=== PATIENT | male | born 1950 | race Caucasian/White ===

== ENCOUNTER 2018-10-29 20:08 | Emergency (ER) | payer MEDICARE, OTHER ==
[~2018-10-29] VITALS: Ht 175.3 cm; Wt 113.4 kg
[2018-10-29 20:27] LABS: BASOPHILS % (AUTO) 0 % (0-10); EOSINOPHILS # (AUTO) 0.2 10^3/uL (0.0-0.3); EOSINOPHILS % (AUTO) 2 % (0-10); HEMATOCRIT 41 % (40-54); HEMOGLOBIN 13.5 G/DL (13.3-17.7); LYMPHOCYTES # (AUTO) 2.2 X 10^3 (1.0-4.0); LYMPHOCYTES % (AUTO) 24 % (12-44); MEAN CORPUSCULAR HEMOGLOBIN 30 PG (25-34); MEAN CORPUSCULAR HGB CONC 33 G/DL (32-36); MEAN CORPUSCULAR VOLUME 90 FL (80-99); MEAN PLATELET VOLUME 10.2 FL (7.4-10.4); MONOCYTES # (AUTO) 1.1 X 10^3 (0.0-1.0); MONOCYTES % (AUTO) 12 % (0-12); NEUTROPHILS # (AUTO) 5.7 X 10^3 (1.8-7.8); NEUTROPHILS % (AUTO) 62 % (42-75); PLATELET COUNT 280 10^3/uL (130-400); WHITE BLOOD COUNT 9.2 10^3/uL (4.3-11.0)
--- NOTE | 2018-10-29 20:28 | ED General ---
General Stated Complaint: DIZZY,NAUSEA Source of Information: Patient, EMS History of Present Illness Date Seen by Provider: Oct 29, 2018 Time Seen by Provider: 20:09 Initial Comments PT ARRIVES VIA EMS PT WAS AT A LOCAL [employer], AND BECAME LIGHTHEADED/DIZZY, BECAME DIAPHORETIC AND BYSTANDERS ASSISTED HIM TO THE FLOOR. HAD NEAR-SYNCOPAL EPISODE PT WAS DIZZY ON ATTEMPTS TO STAND PT HAS HAD NAUSEA, NO VOMITING PT IS UNABLE TO RECALL EVENT--ALL OF THE ABOVE INFORMATION IS FROM EMS EMS REPORT THAT PT WAS VERY DIAPHORETIC AT THE SCENE. PT DENIES HEADACHE NO CHEST PAIN NO PALPITATIONS NO SHORTNESS OF BREATH NO ABDOMINAL PAIN NO VISION CHANGES NO PAIN ANYWHERE NO RECENT ILLNESS OR FEVER, ETC . PT STATES HE HAS NOT HAD ANYTHING TO EAT OR DRINK TODAY--STATES HE WORKS [employer] AT [employer], AND SLEEPS DURING THE DAY. DOES NOT WORK [employer] AND DID NOT WORK LAST NIGHT. OF NOTE, PT STATES HE HAS NOT HAD ANY HEAT IN HIS HOME SINCE 10/14/18 PT STATES HE HAS NOT TAKEN ANY OF HIS MEDICATIONS TODAY ACCUCHECK 120 BY EMS--PT STATES HE IS "BORDERLINE" DIABETIC, DOES NOT TAKE MEDICATIONS FOR DIABETES EMS REPORT THAT INITIALLY THEY COULD NOT OBTAIN A MANUAL BP, BUT ONCE ON MONITOR , BP WAS 88/56, O2 SAT 91% PT DOES HAVE HISTORY OF CVA 2 YEARS AGO, BUT PT IS NOT SURE WHAT SYMPTOMS HE HAD --THINKS HE WAS HAVING TROUBLE TALKING. WAS AT [facility] [place] AT THE TIME. PCP: BEVERLEY ALY IN [place] Allergies and Home Medications Allergies Coded Allergies: No Known Drug Allergies (Unverified , 10/29/18) Patient Home Medication List Home Medication List Reviewed: Yes Review of Systems Review of Systems Constitutional: see HPI, diaphoresis, dizziness EENTM: no symptoms reported Respiratory: no symptoms reported; No cough, No orthopnea, No short of breath, No wheezing Cardiovascular: see HPI; No chest pain, No palpitations; syncope (NEAR-SYNCOPE) ; No vascular heart diseas Gastrointestinal: see HPI; No diarrhea; nausea; No vomiting Genitourinary: no symptoms reported Musculoskeletal: no symptoms reported Skin: no symptoms reported Psychiatric/Neurological: See HPI; Denies Headache, Denies Numbness, Denies Paresthesia, Denies Seizure, Denies Tingling, Denies Weakness Past Fivhzsl-Pslwdn-Gkngja Hx Patient Social History Alcohol Use: Occasionally Uses Recreational Drug Use: No Smoking Status: Former Smoker Recent Foreign Travel: No Contact w/Someone Who Travel: No Past Medical History Surgeries: Yes (RIGHT ELBOW AND FEMUR SURGERIES; EGD/COLONOSCOPY) Orthopedic, Tonsillectomy Respiratory: No Cardiac: No Neurological: Yes (CVA 2016- AFFECTED SPEECH ) Stroke Genitourinary: No Gastrointestinal: Yes Gastroesophageal Reflux, Hiatal Hernia Musculoskeletal: Yes (RIGHT ELBOW AND FEMUR SURGERIES) Endocrine: No HEENT: No Cancer: No Psychosocial: No Integumentary: No Blood Disorders: No Physical Exam Vital Signs Vital Signs - First Documented 10/29/18 10/30/18 20:10 01:35 Temp 97.7 Pulse 71 Resp 18 B/P (MAP) 107/72 (84) Pulse Ox 98 Capillary Refill : Height, Weight, BMI Height: '" Weight: lbs. oz. kg; BMI Method: General Appearance: No Apparent Distress, WD/WN, Other (UNKEMPT) HEENT: PERRL/EOMI, Normal ENT Inspection Neck: Full Range of Motion, Normal Inspection, Non Tender, Supple Respiratory: Normal Breath Sounds, No Accessory Muscle Use, No Respiratory Distress Cardiovascular: Regular Rate, Rhythm, No Edema, No JVD, No Murmur, Normal Peripheral Pulses Gastrointestinal: Normal Bowel Sounds, No Organomegaly, No Pulsatile Mass, Non Tender, Soft Extremity: Normal Capillary Refill, Normal Inspection, Normal Range of Motion, Non Tender, No Calf Tenderness, No Pedal Edema Neurologic/Psychiatric: Alert, Oriented x3 (BUT LIMITED RECOLLECTION OF EVENTS OF TONIGHT. PT HAS SOMEWHAT LIMITED MEMORY OVERALL. ), No Motor/Sensory Deficits , Normal Mood/Affect, bus matron II-XII Norm as Tested Skin: Normal Color, Damp, Diaphoresis Progress/Results/Core Measures Suspected Sepsis SIRS Temperature: Pulse: Respiratory Rate: Laboratory Tests 10/29/18 20:17: White Blood Count 9.2 10/29/18 23:53: White Blood Count 8.5 Blood Pressure / Mean: Laboratory Tests 10/29/18 20:17: Creatinine 1.49H, INR Comment 1.0, Platelet Count 280, Total Bilirubin 0.7 10/29/18 23:53: Creatinine 1.19, Platelet Count 275 Results/Orders Lab Results Laboratory Tests Test 10/29/18 20:17 10/29/18 20:44 10/29/18 22:35 10/29/18 23:53 Range/Units White Blood Count 9.2 8.5 4.3-11.0 10^3/uL Red Blood Count 4.50 4.88 4.35-5.85 10^6/uL Hemoglobin 13.5 14.5 13.3-17.7 G/DL Hematocrit 41 44 40-54 % Mean Corpuscular Volume 90 91 80-99 FL Mean Corpuscular Hemoglobin 30 30 25-34 PG Mean Corpuscular Hemoglobin Concent 33 33 32-36 G/DL Red Cell Distribution Width 13.0 13.2 10.0-14.5 % Platelet Count 280 275 130-400 10^3/uL Mean Platelet Volume 10.2 10.3 7.4-10.4 FL Neutrophils (%) (Auto) 62 79 H 42-75 % Lymphocytes (%) (Auto) 24 14 12-44 % Monocytes (%) (Auto) 12 7 0-12 % Eosinophils (%) (Auto) 2 1 0-10 % Basophils (%) (Auto) 0 0 0-10 % Neutrophils # (Auto) 5.7 6.7 1.8-7.8 X 10^3 Lymphocytes # (Auto) 2.2 1.2 1.0-4.0 X 10^3 Monocytes # (Auto) 1.1 H 0.6 0.0-1.0 X 10^3 Eosinophils # (Auto) 0.2 0.1 0.0-0.3 10^3/uL Basophils # (Auto) 0.0 0.0 0.0-0.1 10^3/uL Prothrombin Time 13.4 12.2-14.7 SEC INR Comment 1.0 0.8-1.4 Activated Partial Thromboplast Time 24 24-35 SEC Sodium Level 144 143 135-145 MMOL/L Potassium Level 3.6 4.4 3.6-5.0 MMOL/L Chloride Level 110 H 106 98-107 MMOL/L Carbon Dioxide Level 22 23 21-32 MMOL/L Anion Gap 12 14 5-14 MMOL/L Blood Urea Nitrogen 22 H 21 H 7-18 MG/DL Creatinine 1.49 H 1.19 0.60-1.30 MG/DL Estimat Glomerular Filtration Rate 47 > 60 BUN/Creatinine Ratio 15 18 Glucose Level 115 H 101 70-105 MG/DL Calcium Level 8.7 9.2 8.5-10.1 MG/DL Corrected Calcium 8.9 8.5-10.1 MG/DL Magnesium Level 2.0 1.8-2.4 MG/DL Total Bilirubin 0.7 0.1-1.0 MG/DL Aspartate Amino Transf (AST/SGOT) 24 5-34 U/L Alanine Aminotransferase (ALT/SGPT) 20 0-55 U/L Alkaline Phosphatase 55 40-136 U/L Total Creatine Kinase 154 30-200 U/L Creatine Kinase MB 5.8 <6.6 NG/ML Troponin I < 0.028 < 0.028 <0.028 NG/ML B-Type Natriuretic Peptide 54.8 <100.0 PG/ML Total Protein 6.2 L 6.4-8.2 GM/DL Albumin 3.7 3.2-4.5 GM/DL TSH [facility] Testing 2.74 0.35-4.94 UIU/ML Serum Alcohol < 10 <10 MG/DL Glucometer 111 H 70-110 MG/DL Urine Color YELLOW Urine Clarity CLEAR Urine pH 5 5-9 Urine Specific [place] 1.010 L 1.016-1.022 Urine Protein 1+ H NEGATIVE Urine Glucose (UA) NEGATIVE NEGATIVE Urine Ketones NEGATIVE NEGATIVE Urine Nitrite NEGATIVE NEGATIVE Urine Bilirubin NEGATIVE NEGATIVE Urine Urobilinogen NORMAL NORMAL MG/DL Urine Leukocyte Esterase NEGATIVE NEGATIVE Urine RBC (Auto) NEGATIVE NEGATIVE Urine RBC RARE /HPF Urine WBC RARE /HPF Urine Squamous Epithelial Cells 0-2 /HPF Urine Crystals NONE /LPF Urine Bacteria NEGATIVE /HPF Urine Casts NONE /LPF Urine Mucus NEGATIVE /LPF Urine Culture Indicated NO Urine Opiates Screen NEGATIVE NEGATIVE Urine Oxycodone Screen NEGATIVE NEGATIVE Urine Methadone Screen NEGATIVE NEGATIVE Urine Propoxyphene Screen NEGATIVE NEGATIVE Urine Barbiturates Screen NEGATIVE NEGATIVE Ur Tricyclic Antidepressants Screen NEGATIVE NEGATIVE Urine Phencyclidine Screen NEGATIVE NEGATIVE Urine Amphetamines Screen NEGATIVE NEGATIVE Urine Methamphetamines Screen NEGATIVE NEGATIVE Urine Benzodiazepines Screen NEGATIVE NEGATIVE Urine Cocaine Screen NEGATIVE NEGATIVE Urine Cannabinoids Screen NEGATIVE NEGATIVE Micro Results Microbiology 10/29/18 Influenza Types A,B Antigen (PAOLO) - Final, Complete My Orders Orders - SOFYA ODOM DO Accucheck Stat ONCE (10/29/18 20:17) Saline Lock/Iv-Start (10/29/18 20:17) Ekg Tracing (10/29/18:) O2 (10/29/18 20:17) Monitor-Rhythm Ecg Trace Only (10/29/18:) Ct Head Wo-R/O Stroke (10/29/18 20:) Alcohol (10/29/18 20:) BNP (10/29/18:) Cbc With Automated Diff (10/29/18:) Comprehensive Metabolic Panel (10/29/18:) Creatine Kinase (10/29/18:) Creatine Kinase Mb (10/29/18:) Drug Screen Stat (Urine) (10/29/18:) Magnesium (10/29/18:) Protime With Inr (10/29/18:) Partial Thromboplastin Time (10/29/18:) Thyroid Analyzer (10/29/18:) Troponin I (10/29/18:) Ua Culture If Indicated (10/29/18:) Blood Culture (10/29/18:) Influenza A And B Antigens (10/29/18:) Chest 1 View, Ap/Pa Only (10/29/18:17) Saline Lock/Iv-Start (10/29/18 21:00) Lactated Ringers (Lr 1000 Ml Iv Solution (10/29/18 21:00) Ct Angio Chest W (10/29/18 21:00) Ct Angio Head/Neck (10/29/18 21:00) Iohexol Injection (Omnipaque 350 Mg/Ml 1 (10/29/18 21:15) Received Contrast (Contrast Received) (10/29/18 21:15) Ns (Ivpb) (Sodium Chloride 0.9% Ivpb Bag (10/29/18 21:15) Iohexol Injection (Omnipaque 350 Mg/Ml 1 (10/29/18 21:15) Received Contrast (Contrast Received) (10/29/18 21:15) Ns (Ivpb) (Sodium Chloride 0.9% Ivpb Bag (10/29/18 21:15) Saline Lock/Iv-Start (10/29/18 21:45) Lactated Ringers (Lr 1000 Ml Iv Solution (10/29/18 21:45) Basic Metabolic Panel (10/29/18 23:14) Cbc With Automated Diff (10/29/18 23:14) Troponin I (10/29/18 23:14) Ekg Tracing (10/30/18 00:50) Medications Given in ED Current Medications Medications Dose Ordered Sig/Xochitl Route Start Time Stop Time Status Last Admin Dose Admin Iohexol 75 ml ONCE ONCE IV 10/29/18 21:15 10/29/18 21:44 DC 10/29/18 21:25 75 ML Iohexol 100 ml ONCE ONCE IV 10/29/18 21:15 10/29/18 21:44 DC 10/29/18 21:26 100 ML Lactated Ringer's 1,000 ml @ 0 mls/hr Q0M ONCE IV 10/29/18 21:00 10/29/18 21:01 DC 10/29/18 21:05 999 MLS/HR Lactated Ringer's 1,000 ml @ 0 mls/hr Q0M ONCE IV 10/29/18 21:45 10/29/18 21:47 DC 10/29/18 22:09 999 MLS/HR Sodium Chloride 100 ml ONCE ONCE IV 10/29/18 21:15 10/29/18 21:44 DC 10/29/18 21:25 50 ML Sodium Chloride 100 ml ONCE ONCE IV 10/29/18 21:15 10/29/18 21:44 DC 10/29/18 21:26 50 ML Vital Signs/I&O 10/29/18 10/30/18 20:10 01:35 Temp 97.7 97.7 Pulse 71 69 Resp 18 18 B/P (MAP) 107/72 (84) 120/72 (88) Pulse Ox 98 10/30/18 00:00 Intake Total 2900 ml Balance 2900 ml Capillary Refill : Progress Note : Progress Note NO SYMPTOMS DURING ER STAY VITALS REMAINED [facility], AND PT IS NOT AGREEABLE TO BEING TRANSFERRED WILL HOLD PT IN ER, HYDRATE AND REPEAT EKG AND LABS PT WANTING TO EAT AND DRINK--GIVEN WATER, NO PROBLEMS SWALLOWING PT OBSERVED IN ER FOR > 5 HOURS AND HAD NO SYMPTOMS OF ANY KIND. REPEAT EKG AND TROPONIN WERE NORMAL PT AMBULATED OUT OF ER WITHOUT DIFFICULTY ECG Initial ECG Impression Date: Oct 29, 2018 Initial ECG Impression Time: 20:18 Initial ECG Rate: 67 Initial ECG Rhythm: Normal Sinus EKG : EKG Time: 00:54 Rate: 73 Rhythm: Normal Sinus Diagnostic Imaging Comments CT HEAD--NO ACUTE PROCESS, CHRONIC CHANGES--PER RADIOLOGIST REPORT @ 2100 CT CHEST ANGIOGRAM--NO P.E. OR ACUTE PROCESS, PER RADIOLOGIST REPORT @ 2219 CT ANGIOGRAM OF HEAD AND NECK--NO ACUTE PROCESS, ASVD WITHOUT SIGNIFICANT STENOSIS, NO ANEURYSM OR INFARCT. PER RADIOLOGIST REPORT AT 2306 Reviewed: Reviewed by Me Departure Impression Primary Impression: Near syncope Additional Impression: Dehydration Disposition: 01 HOME, SELF-CARE Condition: Improved Departure-Patient Inst. Referrals: NO,LOCAL PHYSICIAN (PCP) Primary Care Physician Patient Instructions: Dehydration, Adult (DC), Syncope (Fainting) (DC) Add. Discharge Instructions: LOTS OF CLEAR LIQUIDS--WATER, BROTH, JELLO, GATORADE FOLLOW UP WITH YOUR DR IN 1-2 DAYS FOR FURTHER CARE, RETURN TO ER IF SYMPTOMS RETURN SOFYA ODOM DO Oct 29, 2018 20:28
[2018-10-29 20:40] LABS: PROTHROMBIN TIME PATIENT 13.4 SEC (12.2-14.7)
[2018-10-29 20:48] LABS: ALANINE AMINOTRANSFERASE 20 U/L (0-55); ALBUMIN 3.7 GM/DL (3.2-4.5); ALKALINE PHOSPHATASE 55 U/L (40-136); BILIRUBIN,TOTAL 0.7 MG/DL (0.1-1.0); BUN/CREATININE RATIO 15; CALCIUM 8.7 MG/DL (8.5-10.1); CARBON DIOXIDE 22 MMOL/L (21-32); CHLORIDE 110 MMOL/L (98-107); CREATINE KINASE 154 U/L (30-200); CREATININE SERUM 1.49 MG/DL (0.60-1.30); GFR ESTIMATED 47; GLUCOSE 115 MG/DL (70-105); POTASSIUM 3.6 MMOL/L (3.6-5.0); SODIUM 144 MMOL/L (135-145); TOTAL PROTEIN 6.2 GM/DL (6.4-8.2)
--- NOTE | 2018-10-29 20:56 | Diagnostic Imaging Report ---
PROCEDURE: CT brain without contrast 10/29/2018 TECHNIQUE: Multiple contiguous axial images were obtained through the brain without the use of intravenous contrast. INDICATION: Near syncopal episode with nausea. COMPARISON: None. FINDINGS: No hemorrhage or infarct is seen. No mass, mass effect or midline shift appreciated. No hydrocephalus. Ventricles prominent however perhaps due to the surrounding atrophy. There is chronic ischemic disease in a periventricular distribution. IMPRESSION: 1. Chronic findings as above, no acute process appreciated. Dictated by: Dictated on workstation # [id number]
[2018-10-29] MEDS ORDERED: LACTATED RINGERS 1,000 ML IV ONE ×2 (21:00→21:45)
[2018-10-29 21:07] LABS: CREATINE KINASE MB 5.8 NG/ML (<6.6); TSH (THYROID ANALYZER) 2.74 UIU/ML (0.35-4.94)
[2018-10-29] MEDS ORDERED: NS 100 ML (IVPB) BAG IV ONE ×2 (21:15)
[2018-10-29] MEDS ORDERED: RECEIVED CONTRAST 20 ML VIAL IV SCH ×2 (21:15)
[2018-10-29] MEDS ORDERED: IOHEXOL 350 MG/ML 100 ML (OMNIPAQUE 350) VIAL IV ONE ×2 (21:15)
--- NOTE | 2018-10-29 21:15 | Diagnostic Imaging Report ---
EXAMINATION: Chest dated 10/29/2018 INDICATION: Rule out stroke, weakness. TECHNIQUE: Frontal chest. FINDINGS: Heart unremarkable. Pulmonary vasculature normal in appearance. Lungs and pleural spaces clear. No infiltrates or effusions. IMPRESSION: 1. Negative chest. Dictated by: Dictated on workstation # [id number]
--- NOTE | 2018-10-29 22:14 | Diagnostic Imaging Report ---
PROCEDURE: CT angiography of the chest with contrast. TECHNIQUE: Multiple contiguous axial images were obtained through the chest after uneventful bolus administration of intravenous contrast. 2D reconstructed CTA MIP acquisitions were also performed. INDICATION: Nausea, dizziness, and pain EXAMINATION: CT angiogram of the chest dated 10/29/2018 FINDINGS: No central or proximal segmental pulmonary emboli are seen. The thoracic aorta is grossly unremarkable. No acute process is seen in either lung, bronchiectasis noted in the lung bases. No significant effusions. Visualized upper abdomen demonstrates marked fatty infiltration throughout the liver. No acute process seen in the visualized upper abdomen. Visualized osseous structures intact. IMPRESSION: 1. No acute process appreciated. No evidence for proximal segmental or central pulmonary embolus. Dictated by: Dictated on workstation # [id number]
--- NOTE | 2018-10-29 22:37 | Diagnostic Imaging Report ---
PROCEDURE: CT angiography of the head and CT angiography of the neck with and without contrast dated 10/29/2018. TECHNIQUE: Contiguous noncontrast images were obtained from the skull base through the vertex. After intravenous contrast administration, helical CT angiography of the neck was performed. Source data was reformatted into multiple MIP projections. Delayed post contrast acquisition was also obtained. INDICATION: Dizziness, nausea, pain. FINDINGS: The thoracic aorta as visualized is grossly unremarkable with artifact noted in this region into the lower neck due to likely streak artifact from the shoulders. This limits evaluation of the vessels in this region. No definite area of significant stenosis seen within the vessels at the thoracic inlet with atherosclerotic disease noted within the left common carotid artery just past the thoracic inlet in the lower neck but no significant narrowing appreciated. The area does appear somewhat tortuous with at least mild narrowing suspected. More distally, the left common carotid artery redemonstrates some atherosclerotic disease at the bulb but no significant stenosis. The internal carotid artery is patent. Areas of artifact and streak in the region of the mandible limit evaluation of the internal carotid artery at this level with hypodensity in the region most likely due to artifact. Similar findings seen on the right. The right internal carotid artery is also somewhat tortuous within the neck with areas of mild to moderate narrowing noted and a focal area of tortuosity but no significant stenosis or occlusion appreciated. There is atherosclerotic disease noted at its origin as well but again without significant narrowing. Atherosclerotic disease at the carotid bulb was also seen on the right. Visualized aspects of the common carotid artery on the right appear to be patent. The vertebral arteries are poorly evaluated at the thoracic inlet and at their origins due to marked artifact. A focal abnormality in these regions is difficult to exclude. Along the better visualized vertebral arteries, no significant stenosis or occlusion appreciated. No dissection. The basilar artery is unremarkable. Within the intracranial structures, basilar artery and the posterior cerebral arteries bilaterally patent. Anterior cerebral and middle cerebral arteries patent as well. No aneurysmal dilatation is appreciated Small air fluid level in right maxillary sinus is noted. Prevertebral soft tissues demonstrate no acute abnormalities. Lung apices are not well evaluated due to streak artifact but groundglass opacities are seen bilaterally. There is some air noted in the left thoracic inlet, most likely iatrogenic. IMPRESSION: 1. Atherosclerotic disease, as above. No significant stenosis, occlusion or dissection noted. No aneurysmal dilatation within the major vessels, as above. Limitations at the thoracic inlet. 2. Ground glass opacities in the visualized lung apices which are nonspecific and could be due to inflammatory process versus pulmonary edema. Dictated by: Dictated on workstation # [id number]
[2018-10-29 22:48] LABS: BILIRUBIN,URINE NEGATIVE (NEGATIVE); CLARITY,URINE CLEAR; COLOR,URINE YELLOW; GLUCOSE, URINE (UA) NEGATIVE (NEGATIVE); KETONES,URINE NEGATIVE (NEGATIVE); LEUKOCYTE ESTERASE ,URINE NEGATIVE (NEGATIVE); NITRITE,URINE NEGATIVE (NEGATIVE); PH,URINE 5 (5-9); PROTEIN,URINE 1+ (NEGATIVE); UROBILINOGEN,URINE NORMAL (NORMAL)
[2018-10-29 22:49] LABS: RBC,URINE RARE /HPF
[2018-10-29 22:50] LABS: BACTERIA,URINE NEGATIVE /HPF; SQUAMOUS EPITHELIAL CELL,UR 0-2 /HPF; WBC,URINE RARE /HPF
[2018-10-29 22:55] LABS: AMPHETAMINE SCREEN, URINE NEGATIVE (NEGATIVE); BARBITURATE SCREEN URINE NEGATIVE (NEGATIVE); BENZODIAZEPINES SCREEN URINE NEGATIVE (NEGATIVE); CANNABINOID SCREEN, URINE NEGATIVE (NEGATIVE); COCAINE SCREEN URINE NEGATIVE (NEGATIVE); METHADONE STAT NEGATIVE (NEGATIVE); METHAMPHETAMINE SCREEN URINE S NEGATIVE (NEGATIVE); OPIATE SCREEN URINE NEGATIVE (NEGATIVE); OXYCODONE STAT NEGATIVE (NEGATIVE); PROPOXYPHENE STAT NEGATIVE (NEGATIVE); TRICYCLIC ANTIDEPRESSANTS SCRE NEGATIVE (NEGATIVE)
[2018-10-30 00:05] LABS: BASOPHILS % (AUTO) 0 % (0-10); EOSINOPHILS # (AUTO) 0.1 10^3/uL (0.0-0.3); EOSINOPHILS % (AUTO) 1 % (0-10); HEMATOCRIT 44 % (40-54); HEMOGLOBIN 14.5 G/DL (13.3-17.7); LYMPHOCYTES # (AUTO) 1.2 X 10^3 (1.0-4.0); LYMPHOCYTES % (AUTO) 14 % (12-44); MEAN CORPUSCULAR HEMOGLOBIN 30 PG (25-34); MEAN CORPUSCULAR HGB CONC 33 G/DL (32-36); MEAN CORPUSCULAR VOLUME 91 FL (80-99); MEAN PLATELET VOLUME 10.3 FL (7.4-10.4); MONOCYTES # (AUTO) 0.6 X 10^3 (0.0-1.0); MONOCYTES % (AUTO) 7 % (0-12); NEUTROPHILS # (AUTO) 6.7 X 10^3 (1.8-7.8); NEUTROPHILS % (AUTO) 79 % (42-75); PLATELET COUNT 275 10^3/uL (130-400); RED CELL DISTRIBUTION WIDTH 13.2 % (10.0-14.5); WHITE BLOOD COUNT 8.5 10^3/uL (4.3-11.0)
[2018-10-30 00:18] LABS: BUN/CREATININE RATIO 18; CALCIUM 9.2 MG/DL (8.5-10.1); CARBON DIOXIDE 23 MMOL/L (21-32); CHLORIDE 106 MMOL/L (98-107); CREATININE SERUM 1.19 MG/DL (0.60-1.30); GFR ESTIMATED > 60; GLUCOSE 101 MG/DL (70-105); POTASSIUM 4.4 MMOL/L (3.6-5.0); SODIUM 143 MMOL/L (135-145)
[2018-10-30 01:35] VITALS: BP 120/72
== END 2018-10-30 01:37 | disposition home or self-care (01) ==
LOC: EDUNIT# 20:08 → ER 20:10
DX: R55 Syncope and collapse (principal); E86.0 Dehydration; K21.9 Gastro-esophageal reflux disease without esophagitis; Z90.89 Acquired absence of other organs; Z86.73 Personal history of transient ischemic attack (TIA), and cerebral infarction without residual deficits; Z87.891 Personal history of nicotine dependence; Z87.19 Personal history of other diseases of the digestive system
CPT/HCPCS: 36415; 70450; 70496; 70498; 71045; 71275; 80048; 80053; 80306; 80320; 81000; 82550; 82553; 82962; 83735; 83880; 84443; 84484; 85025; 85610; 85730; 87040; 87804; 93005; 93041